=== PATIENT | male | born 1955 | race Hispanic/Latino ===

== ENCOUNTER 2018-11-24 12:01 | Emergency (ER) | payer MEDICARE ==
[~2018-11-24] VITALS: Ht 177.8 cm; Wt 113.9 kg
[~2018-11-24 12:01] MED LIST: CELEBREX100 MG PO; ESIDRIX25 MG PO; FLOMAX0.4 MG PO; GLIPIZIDE ER10 MG PO; LYRICA75 MG PO; METFORMIN HCL500 M2 PO; PLAVIX75 MG PO; TIZANIDINE HCL2 MG; ZESTRIL10 MG PO
--- OUTSIDE RECORDS SUMMARY | 2018-11-24 12:04 | XMS REPORT | Clinical Summary ---
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 1 USE TO CHECK BLOOD SUGARS Active blood glucose Use as 1 Kit 0 meterIndications: Type II directed. 3 or unspecified type diabetes mellitus without mention of complication, uncontrolled Active LANCETSIndications: Type Every Other 1 Box 3 II or unspecified type day 3 diabetes mellitus without mention of complication, uncontrolled Active XALATAN 0.005 % Instill 1 7.5 mL 1 ophthalmic Drop in each 4 solutionIndications: POAG eye at (primary open-angle bedtime glaucoma) nightly. Active blood glucose test Check every 100 Each 3 stripsIndications: Type other day. 5 II or unspecified type diabetes mellitus without mention of complication, uncontrolled Active testosterone (ANDRODERM) Apply 1 Patch 30 Patch 5 2 mg/24 hour to skin as 5 patchIndications: directed Hypogonadism in male every 24 hours. Active ASPIRIN EC 81 mg delayed Take 1 tablet 90 tablet 1 release by mouth 7 tabletIndications: resume daily. on 08/30/2018 Active atorvastatin (LIPITOR) 20 Take 1 tablet 90 tablet 0 mg tabletIndications: by mouth at 7 Hyperlipidemia, bedtime unspecified nightly. hyperlipidemia type Active blood glucose (PRECISION 2 times 50 Each 6 XTRA TEST STRIPS) test weekly. 7 stripsIndications: Diabetes mellitus due to underlying condition with stage 1 chronic kidney disease, without long-term current use of insulin Active atorvastatin (LIPITOR) 20 TAKE 1 TABLET 90 tablet 0 mg tabletIndications: BY MOUTH AT 7 Hyperlipidemia, BEDTIME unspecified NIGHTLY hyperlipidemia type Active latanoprost (XALATAN) Instill 1 7.5 mL 4 0.005 % ophthalmic Drop in each 7 solutionIndications: eye at Glaucoma suspect, bedtime bilateral nightly. Active HYDROcodone-acetaminophen 0 (NORCO) 10-325 mg tablet 8 Active celecoxib (CELEBREX) 200 0 mg capsule 8 Active ETODOLAC CR 600 mg tablet 0 7 Active polyethylene glycol Add lukewarm 4000 mL 0 (GOLYTELY) 236-22.74-6.74 drinking 8 -5.86 gram oral water to the solutionIndications: fill nicolle (4 Polyposis coli, familial liters) and shake. Drink as directed by your doctor.. Active polyethylene glycol Add lukewarm 4000 mL 0 (GOLYTELY) 236-22.74-6.74 drinking 8 -5.86 gram oral water to the solutionIndications: fill nicolle (4 Polyposis coli, familial liters) and shake. Drink as directed by your doctor.. Active finasteride (PROSCAR) 5 TAKE ONE 90 tablet 4 mg tabletIndications: TABLET BY 8 Benign non-nodular MOUTH ONCE prostatic hyperplasia DAILY with lower urinary tract symptoms Active hydroCHLOROthiazide Take 1 tablet 90 tablet 1 (HYDRODIURIL) 25 mg by mouth 8 tabletIndications: daily. Essential hypertension Active clopidogrel (PLAVIX) 75 Take 1 tablet 90 tablet 1 mg tabletIndications: by mouth 8 resume on 08/30/2018 daily. Active doxazosin (CARDURA) 1 mg TAKE ONE 90 tablet 1 tabletIndications: TABLET BY 8 Essential hypertension MOUTH AT BEDTIME NIGHTLY Active lisinopril (PRINIVIL, TAKE 1 TABLET 90 tablet 1 ZESTRIL) 40 mg BY MOUTH ONCE 8 tabletIndications: DAILY Essential hypertension Active pregabalin (LYRICA) 150 Take 1 270 capsule 1 mg capsuleIndications: capsule by 9 Numbness and tingling of mouth 3 times both legs, Carpal tunnel daily. syndrome of left wrist Active Miscellaneous Medical by 1 Each 0 Supply MiscIndications: Misc.(Non-Santos 9 Essential hypertension g; Combo Route) route Blood pressure kit. Active KLOR-CON M10 10 mEq TAKE TWO 180 tablet 1 extended release TABLETS BY 9 tabletIndications: MOUTH ONCE Hypokalemia DAILY Active metFORMIN (GLUCOPHAGE) TAKE 1 TABLET 180 tablet 1 1,000 mg BY MOUTH 9 tabletIndications: TWICE DAILY Diabetes mellitus type 2 WITH MORNING without retinopathy AND EVENING MEALS Active glipiZIDE (GLUCOTROL) 10 TAKE 1 TABLET 180 tablet 0 mg tabletIndications: BY MOUTH 9 Type 2 diabetes mellitus TWICE DAILY without complication, BEFORE A MEAL without long-term current use of insulin Active polyethylene glycol Add lukewarm 4000 mL 0 (GOLYTELY) 236-22.74-6.74 drinking 9 -5.86 gram oral water to the solutionIndications: fill nicolle (4 Polyposis coli, familial liters) and shake. Drink as directed by your doctor.. Active sildenafil citrate Take 1 tablet 30 tablet 0 (VIAGRA) 100 mg by mouth as 9 tabletIndications: needed for Erectile dysfunction, Erectile unspecified erectile Dysfunction. dysfunction type Active polyethylene glycol Add lukewarm 4000 mL 0 (GOLYTELY) 236-22.74-6.74 drinking 9 -5.86 gram oral water to the solutionIndications: fill nicolle (4 Polyposis coli, familial liters) and shake. Drink as directed by your doctor.. Active linagliptin (TRADJENTA) 5 Take 1 tablet 90 tablet 1 mg tabletIndications: by mouth 9 Uncontrolled type 2 daily. diabetes mellitus with hyperglycemia Active clotrimazole (LOTRIMIN) 1 Apply to 30 g 0 % topical affected area 9 creamIndications: 2 times Onychomycosis daily. Active hydrocortisone 1 % Apply to 30 g 0 ointmentIndications: Fire affected area 9 ant bite, undetermined 2 times intent, initial encounter daily. Active amLODIPine (NORVASC) 10 TAKE 1 TABLET 90 tablet 0 mg tabletIndications: BY MOUTH ONCE 9 Essential hypertension DAILY 11/24/2018 Active clindamycin (CLEOCIN HCL) Take 1 30 capsule 0 300 mg capsule by 9 capsuleIndications: Fire mouth 3 times ant bite, undetermined daily for 10 intent, subsequent days. encounter Active lisinopril (PRINIVIL, TAKE 1 TABLET 90 tablet 1 ZESTRIL) 40 mg BY MOUTH ONCE 9 tabletIndications: DAILY Essential hypertension 05/29/2018 Discontinued amLODIPine (NORVASC) 10 TAKE ONE 90 tablet 0 mg tabletIndications: TABLET BY 7 Essential hypertension MOUTH ONCE DAILY 09/22/2018 Discontinued clotrimazole (LOTRIMIN) 1 Apply to 30 g 0 % topical affected area 7 creamIndications: 2 times Candidal balanitis daily. 12/13/2017 Discontinued sildenafil (REVATIO) 20 Take 1 tablet 30 tablet 1 mg tabletIndications: by mouth as 7 Erectile dysfunction, needed for unspecified erectile Other dysfunction type (erecticle diysfunction) Takes 1 hour prior to sexual intercouse. 01/05/2018 Discontinued acarbose (PRECOSE) 100 mg TAKE ONE 270 tablet 0 tabletIndications: TABLET BY 7 Medication refill MOUTH THREE TIMES DAILY WITH MEALS. 01/04/2018 Discontinued doxazosin (CARDURA) 1 mg TAKE ONE 90 tablet 1 tabletIndications: TABLET BY 7 Essential hypertension MOUTH AT BEDTIME NIGHTLY 12/13/2017 Discontinued pregabalin (LYRICA) 75 mg Take 3 360 capsule 1 capsuleIndications: capsules by 7 Numbness and tingling of mouth 2 times both legs daily. 12/13/2017 Discontinued lisinopril (PRINIVIL, TAKE ONE 90 tablet 0 ZESTRIL) 40 mg TABLET BY 7 tabletIndications: MOUTH ONCE Essential hypertension DAILY 06/16/2018 Discontinued KLOR-CON M10 10 mEq TAKE TWO 180 tablet 1 extended release TABLETS BY 7 tabletIndications: MOUTH ONCE Hypokalemia DAILY 12/13/2017 Discontinued lisinopril (PRINIVIL, TAKE ONE 90 tablet 0 ZESTRIL) 40 mg TABLET BY 7 tabletIndications: MOUTH ONCE Essential hypertension DAILY 05/29/2018 Discontinued amLODIPine (NORVASC) 10 TAKE ONE 90 tablet 0 mg tabletIndications: TABLET BY 8 Essential hypertension MOUTH ONCE DAILY 12/13/2017 Discontinued clopidogrel (PLAVIX) 75 TAKE ONE 90 tablet 1 mg tabletIndications: TABLET BY 8 Cerebrovascular accident MOUTH ONCE (CVA), unspecified DAILY mechanism, History of stroke 04/30/2018 Discontinued glipiZIDE (GLUCOTROL) 10 TAKE ONE 180 tablet 0 mg tabletIndications: TABLET BY 8 Type 2 diabetes mellitus MOUTH TWICE without complication, DAILY BEFORE without long-term current A MEAL use of insulin 07/02/2018 Discontinued metFORMIN (GLUCOPHAGE) TAKE ONE 180 tablet 1 1,000 mg TABLET BY 8 tabletIndications: MOUTH TWICE Diabetes mellitus type 2 DAILY WITH without retinopathy MORNING AND EVENING MEAL 12/13/2017 Discontinued hydroCHLOROthiazide TAKE 1 TABLET 90 tablet 0 (HYDRODIURIL) 25 mg BY MOUTH ONCE 8 tabletIndications: DAILY Essential hypertension 04/10/2018 Discontinued lisinopril (PRINIVIL, Take 1 tablet 90 tablet 1 ZESTRIL) 40 mg by mouth 8 tabletIndications: daily. Essential hypertension 05/29/2018 Discontinued pregabalin (LYRICA) 75 mg Take 3 360 capsule 1 capsuleIndications: capsules by 8 Numbness and tingling of mouth 2 times both legs daily. 12/13/2017 Discontinued sildenafil citrate Take 1 tablet 10 tablet 0 (VIAGRA) 25 mg by mouth as 8 tabletIndications: needed for Erectile dysfunction, Erectile unspecified erectile Dysfunction. dysfunction type 12/13/2017 Discontinued sildenafil citrate Take 1 tablet 30 tablet 0 (VIAGRA) 100 mg by mouth as 8 tabletIndications: needed for Erectile dysfunction, Erectile unspecified erectile Dysfunction. dysfunction type 05/29/2018 Discontinued sildenafil citrate Take 1 tablet 30 tablet 0 (VIAGRA) 100 mg by mouth as 8 tabletIndications: needed for Erectile dysfunction, Erectile unspecified erectile Dysfunction. dysfunction type 03/11/2018 Discontinued acarbose (PRECOSE) 100 mg TAKE ONE 270 tablet 0 tabletIndications: TABLET BY 8 Medication refill MOUTH THREE TIMES DAILY WITH MEALS 09/22/2018 Discontinued acarbose (PRECOSE) 100 mg TAKE 1 TABLET 270 tablet 0 tabletIndications: BY MOUTH 8 Medication refill THREE TIMES DAILY WITH MEALS 08/05/2018 Discontinued glipiZIDE (GLUCOTROL) 10 TAKE 1 TABLET 180 tablet 0 mg tabletIndications: BY MOUTH 9 Type 2 diabetes mellitus TWICE DAILY without complication, BEFORE A MEAL without long-term current use of insulin 05/29/2018 Discontinued amLODIPine (NORVASC) 10 Take 1 tablet 90 tablet 0 mg tabletIndications: by mouth 9 Essential hypertension daily. 08/22/2018 Discontinued sildenafil citrate Take 1 tablet 30 tablet 0 (VIAGRA) 100 mg by mouth as 9 tabletIndications: needed for Erectile dysfunction, Erectile unspecified erectile Dysfunction. dysfunction type 11/17/2018 Discontinued amLODIPine (NORVASC) 10 Take 1 tablet 90 tablet 0 mg tabletIndications: by mouth 9 Essential hypertension daily. 05/29/2018 tropicamide (MYDRIACYL) Instill 1 15 mL 0 0.5 % ophthalmic Drop in each 9 solutionIndications: eye once as Uncontrolled type 2 needed for up diabetes mellitus without to 1 dose complication, without (for poor long-term current use of retina scan insulin image). 08/22/2018 Discontinued sildenafil citrate Take 1 tablet 30 tablet 0 (VIAGRA) 100 mg by mouth as 9 tabletIndications: needed for Erectile dysfunction, Erectile unspecified erectile Dysfunction. dysfunction type 11/04/2018 mupirocin (BACTROBAN) 2 % Apply to 22 g 0 ointmentIndications: Fire affected area 9 ant bite, undetermined 3 times daily intent, initial encounter for 7 days. 11/21/2018 mupirocin (BACTROBAN) 2 % Apply to 22 g 0 ointmentIndications: Fire affected area 9 ant bite, undetermined 3 times daily intent, subsequent for 7 days. encounter Status Hospital, Clinic, or Ordered Dose Route Frequency Start End Date Other Facility Date Administered Medication Ended triamcinolone acetonide 20 mg OTHER ONCE 09/06/19 (KENALOG-40) injection 20 19 9 mgIndications: Trigger middle finger, unspecified laterality Ended triamcinolone acetonide 20 mg OTHER ONCE 09/06/19 (KENALOG-40) injection 20 19 9 mgIndications: Trigger middle finger, unspecified laterality Ended lidocaine 1 % (XYLOCAINE) 0.5 mL IJ ONCE 09/06/19 injection 0.5 19 9 mLIndications: Trigger middle finger, unspecified laterality Ended lidocaine 1 % (XYLOCAINE) 0.5 mL IJ ONCE 09/06/19 injection 0.5 19 9 mLIndications: Trigger middle finger, unspecified laterality Active Problems Problem Noted Date Inadequately controlled diabetes mellitus 11/14/2016 History of stroke 10/18/2016 Tubulovillous adenoma repeat colonoscopy in 06/201709/19/2016 Overview: s/p Cscope 08/2017: With hx of Barbour. Recommend repeating colonoscopy in 1yr and forgo annual FIT in the interim. 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 Periodontitis Chronic 02/05/2014 Varicose veins of legs 01/29/2014 Myopia with astigmatism and presbyopia 01/29/2014 NS (nuclear sclerosis) 01/29/2014 Diabetes mellitus type 2 without retinopathy 01/29/2014 POAG (primary open-angle glaucoma) 11/05/2013 Dental decay 04/20/2013 Decay, teeth 10/16/2012 Diabetes mellitus 04/19/2011 Hyperlipidemia 04/19/2011 Hypertension 04/19/2011 Candidiasis 01/28/2009 Erectile dysfunction 01/13/2009 Mass of neck 09/20/2006 Neck pain, posterior 09/20/2006 Microalbuminuria 07/30/2006 Diabetes mellitus type II, uncontrolled 04/05/2006 HTN (hypertension), benign 01/25/2006 High cholesterol Polyposis coli, familial Chronic low back pain Peripheral polyneuropathy Neck mass Overview: Rt side posterior chain ;biopsy in 2003 c/w lipoma Encounters Care Team Description Date Type Specialty Lalit Castillo MD Essential hypertension; at goal 11/19/2018 Refill [facility] Beverly Noel PA Fire ant bite, undetermined intent, subsequent encounter (Primary Dx) 11/14/2018 Office Visit [facility] Lalit Castilol MD Essential hypertension: not at goal, 11/13/2018 Refill [facility] Lalit Castillo MD Bilateral carpal tunnel syndrome (Primary Dx); Fire ant bite, undetermined intent, initial encounter; Essential hypertension: not at goal, ; Uncontrolled type 2 diabetes mellitus without complication, without long-term current use of insulin 10/28/2018 Office Visit Family Practice 10/28/2018 Travel Lalit Castillo MD Consult 10/20/2018 Telephone [facility] Lalit Castillo MD Lumbar radiculopathy (Primary Dx) 10/14/2018 Orders Only [facility] Suzan Astudillo, RN Information Only 10/14/2018 Telephone [facility] Gerda Ovalles, Physician Afsaneh Chacko MD Controlled diabetes mellitus type 2 with complications, unspecified 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 (Primary Dx); History of stroke; Bilateral carpal tunnel syndrome; Numbness and tingling in both hands 10/13/2018 Procedure Visit Physical Medicine and Rehab 10/13/2018 Travel Martina Escamilla, RN Consult (outside referral) 10/09/2018 Telephone [facility] Lalit Castillo MD Onychomycosis (Primary Dx); Uncontrolled type 2 diabetes mellitus with hyperglycemia 09/22/2018 Office Visit [facility] Elizabeth Oconnell, OD Primary open angle glaucoma (POAG) of both eyes, mild stage (Primary Dx) 09/22/2018 Office Visit Ophthalmology Lalit Castillo MD Onychomycosis; Uncontrolled type 2 diabetes mellitus with hyperglycemia 09/22/2018 Orders Only [facility] 09/22/2018 Travel Negin Armijo MD Trigger middle finger, unspecified laterality (Primary Dx); Bilateral hand numbness 09/05/2018 Office Visit Family Practice Negin Armijo MD Trigger middle finger, unspecified laterality; Bilateral hand numbness 09/05/2018 Orders Only Family Practice Donna Rice 09/04/2018 Nurse Only Ophthalmology Coco Velázquez CRNA 08/26/2018 Anesthesia Gastroenterology Event Lalit Castillo MD Lee, Amy I, MD Pappas, Stephen C, MD Polyposis coli, familial (Primary Dx) 08/26/2018 Hospital Encounter 08/26/2018 Travel Lalit Castillo MD Erectile dysfunction, unspecified erectile dysfunction type 08/22/2018 Refill Family Practice Lalit Castillo MD Anemia, unspecified type; Other skilled nursing (current) drug therapy 08/20/2018 Lab Appointment Lab Suzan Astudillo RN Erectile dysfunction, unspecified erectile dysfunction type 08/20/2018 Refill Family Practice 08/20/2018 Travel Lindy Constantino Appointment Related Questions (To confirm that patient received colonoscopy appointment, instruction sheet and Golytely prescription.) 08/19/2018 Telephone Gastroenterology Heriberto Coronel, Fellow(MD) Polyposis coli, familial (Primary Dx) 08/18/2018 Orders Only Gastroenterology Proc, Bt Gi Jaja Haq MD 08/15/2018 Hospital Encounter Elizabeth Oconnell, OD Glaucoma suspect, bilateral (Primary Dx); Mild nonproliferative diabetic retinopathy of both eyes without macular edema associated with type 2 diabetes mellitus; Posterior vitreous detachment of right eye; Combined forms of age-related cataract of both eyes; Bilateral dry eyes; Refractive error 08/12/2018 Office Visit Ophthalmology 08/12/2018 Travel Lalit Castillo MD Type 2 diabetes mellitus without complication, without long-term current use of insulin 08/05/2018 Refill Clinical Pharmacy Sarah Alvarado Appointment Related Questions 07/18/2018 Telephone Family Practice Lalit Castillo MD Diabetes mellitus type 2 without retinopathy 07/02/2018 Refill Family Practice Elizabeth Oconnell, OD Glaucoma suspect, bilateral (Primary Dx) 06/24/2018 Office Visit Ophthalmology 06/24/2018 Travel Lalit Castillo MD Results 06/20/2018 Telephone Family Practice Lalit Castillo MD Essential hypertension: not at goal, ; Uncontrolled type 2 diabetes mellitus without complication, without long-term current use of insulin 06/19/2018 Lab Appointment Lab Martina Escamilla RN Consult 06/19/2018 Telephone [facility] Lalit Castillo MD Hypokalemia 06/16/2018 Refill [facility] Lalit Castillo MD Glaucoma suspect, unspecified laterality 06/03/2018 Orders Only [facility] Lalit Castillo MD Results 06/03/2018 Telephone [facility] Lalit Castillo MD Uncontrolled type 2 diabetes mellitus without complication, without long-term current use of insulin 05/30/2018 Ancillary Ophthalmology Procedure Lalit Castillo MD Numbness and tingling of both legs (Primary Dx); Essential hypertension: not at goal, ; Carpal tunnel syndrome of left wrist: declines surgery; Uncontrolled type 2 diabetes mellitus without complication, without long-term current use of insulin; Erectile dysfunction, unspecified erectile dysfunction type; Chronic low back pain, unspecified back pain laterality, with sciatica presence unspecified 05/29/2018 Office Visit [facility] 05/29/2018 Travel Lalit Castillo MD Type 2 diabetes mellitus without complication, without long-term current use of insulin 04/30/2018 Refill Clinical Pharmacy Case Malhotra, Fellow(MD) Polyposis coli, familial 04/27/2018 Orders Only Gastroenterology Lalit Castillo MD Essential hypertension; at goal 04/10/2018 Refill [facility] Lalit Castillo MD Medication refill 03/11/2018 Refill Clinical Pharmacy Lalit Castillo MD Medication refill 01/05/2018 Refill Clinical Pharmacy Lalit Castillo MD Essential hypertension: not at goal 01/04/2018 Refill [facility] Donna Momin RN Other (returning pharmacy call) 01/03/2018 Telephone Nora Blanchard DO Candidal balanitis 12/31/2017 Refill [facility] Lalit Castillo MD Essential hypertension; at goal (Primary Dx); Numbness and tingling of both legs; Cerebrovascular accident (CVA), unspecified mechanism; History of stroke; Need for Tdap vaccination; Erectile dysfunction, unspecified erectile dysfunction type; Skin lesion; Inadequately controlled diabetes mellitus 12/13/2017 Office Visit Family Practice Lalit Castillo MD Skin lesion 12/13/2017 Orders Only Family Practice after 11/23/2017 Immunizations Name Administration Dates Next Due Clonidine 0.1mg Tab 04/19/2011 Influenza <Unspecified> 01/21/2016 Influenza Vaccine 04/19/2011, 02/10/2010, 02/18/2008, 01/25/2006 01/25/2007 Influenza Vaccine, 01/30/2017 Seasonal, Injectable Influenza, Injectable, 01/24/2018 Quadrivalent, Preservative Free PPV 23 Pneumococcal 04/19/2011 Polysaccaride Pneumococcal 13-valent 11/14/2018 (Deferred: Other) conj 0.5 mL injection Td Tetanus, diphtheria 12/11/2006 12/11/2016 Toxoids Vaccine Tdap (Tetanus Toxoid, 12/13/2017 Reduced Diphtheria Toxoid And Acellular Pertussis, Absorbed) Tropicamide 0.5% Eye-Bessy 06/09/2014 15ml Varicella Vaccine Adult 05/29/2017 in Clinic Family History Medical History Relation Name Comments Cancer Brother Colon cancer Diabetes Father Heart Father Stroke Father Cataracts Mother Diabetes Mother Relation Name Status Comments Brother Alive Brother Alive Brother Alive Brother Alive Brother Alive Brother Father Maternal Grandfather Maternal Grandmother Mother Paternal Grandfather Paternal Grandmother Sister Alive Sister Alive Sister Alive Sister Alive Sister Alive Sister Alive Social History Date Tobacco Use Types Packs/Day Years Used Quit: 03/22/2003 Former Smoker Smokeless Tobacco: Never Used Tobacco Cessation: Counseling Given: No Drinks/Week oz/Week Comments Alcohol Use 1.0 Occasion Yes Food Insecurity Answer Date Recorded Within the past 12 months, you worried that your Never true 09/27/2017 food would run out before you got money to buy more. Within the past 12 months, the food you bought Never true 09/27/2017 just didn't last and you didn't have money to get more. Sex Assigned at Date Recorded Not on file Industry Job Start Date Occupation Not on file Not on file Not on file Travel End Travel History Travel Start No recent travel history available. Last Filed Vital Signs Reading Time Taken Comments Vital Sign 111/66 11/14/2018 8:47 AM CDT Blood Pressure 66 11/14/2018 8:47 AM CDT Pulse 36.8 C (98.2 F) 11/14/2018 8:47 AM CDT Temperature 18 11/14/2018 8:47 AM CDT Respiratory Rate 98% 11/14/2018 8:47 AM CDT Oxygen Saturation - - Inhaled Oxygen Concentration 111.1 kg (245 lb) 11/14/2018 8:47 AM CDT Weight 172.7 cm (5' 8") 11/14/2018 8:47 AM CDT Height 37.25 11/14/2018 8:47 AM CDT Body Mass Index Plan of Treatment Care Team Description Date Type Specialty 12/19/2018 Lab Appointment Lab 12/26/2018 Office Visit Ophthalmology Health Maintenance Due Date Last Done Comments DM HGBA1C (Yearly) 06/19/2019 06/19/2018, 06/25/2017, 12/05/2016, Additional history exists Colonoscopy 1yr 08/29/2019 08/28/2018, 08/21/2017 (Previously completed - External), 07/18/2016 (Previously completed - External), Additional history exists DM Retinal Exam (Yearly) 09/23/2019 09/22/2018, 08/12/2018, 06/24/2018, Additional history exists DM Foot Exam (Yearly) 10/29/2019 10/28/2018, 10/28/2018, 06/17/2017, Additional history exists IMM Pneumococcal Age 63 Completed 04/19/2011 and Up Procedures Comments Procedure Name Priority Date/Time Associated Diagnosis DIABETIC FOOT EXAM Routine 10/28/2018 Uncontrolled type 2 11:40 AM CDT diabetes mellitus without complication, without long-term current use of insulin EMG CONSULT OUTPATIENT Routine 10/13/2018 Bilateral hand numbness 9:00 AM CDT POC GLUCOSE - IN LAB Routine 08/26/2018 (STAT) 8:59 AM CDT MERGED WITH [facility] Routine 08/26/2018 8:20 AM CDT POC GLUCOSE - IN LAB Routine 08/26/2018 (STAT) 7:54 AM CDT EGD Routine 08/26/2018 Polyposis coli, familial 2:00 AM CDT COLONOSCOPY Routine 08/26/2018 Polyposis coli, familial 2:00 AM CDT FOLIC ACID Routine 08/20/2018 Other skilled nursing (current) 11:59 AM CDT drug therapy Anemia, unspecified type VITAMIN B12 Routine 08/20/2018 Other termite treater (current) 11:59 AM CDT drug therapy Anemia, unspecified type IRON PROFILE Routine 08/20/2018 Anemia, unspecified type 11:59 AM CDT FERRITIN Routine 08/20/2018 Anemia, unspecified type 11:59 AM CDT MICROALBUMIN / CREATININE Routine 06/19/2018 Essential hypertension: URINE RATIO 10:24 AM 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, Uncontrolled type 2 diabetes mellitus without complication, without long-term current use of insulin LIVER PROFILE Routine 06/19/2018 Essential hypertension: 10:23 AM 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, Uncontrolled type 2 diabetes mellitus without complication, without long-term current use of insulin BASIC METABOLIC PANEL Routine 06/19/2018 Essential hypertension: 10:23 AM 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, Uncontrolled type 2 diabetes mellitus without complication, without long-term current use of insulin LIPID PROFILE Routine 06/19/2018 Essential hypertension: 10:23 AM 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, Uncontrolled type 2 diabetes mellitus without complication, without long-term current use of insulin HEMOGLOBIN A1C Routine 06/19/2018 Essential hypertension: 10:23 AM 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, Uncontrolled type 2 diabetes mellitus without complication, without long-term current use of insulin CBC/DIFF Routine 06/19/2018 Essential hypertension: 10:23 AM 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, Uncontrolled type 2 diabetes mellitus without complication, without long-term current use of insulin OPHTHALMOLOGY RETINAL Routine 05/30/2018 Uncontrolled type 2 SCAN 4:32 PM WIREWORKER SUPERVISOR diabetes mellitus without complication, without long-term current use of insulin after 11/23/2017 Results * DIABETIC FOOT EXAM (10/28/2018 11:40 AM CDT) Narrative Performed At Lalit Castillo MD 10/28/20183:38 PM Diabetic Foot Exam was performed at 10/28/2018 11:50 AM.Right foot sensation is normal, right foot pulses are normal, right foot appearance is normal.Left foot sensation is normal,left foot pulses are normal, left foot appearance is normal. * EMG CONSULT OUTPATIENT (10/13/2018 9:00 AM CDT) Narrative Performed At Afsaneh Chacko MD 10/19/20181:20 PM [facility], DEPT PMR [address] [place] [address] ELECTROMYOGRAPHY REPORT NAME : YUN OSMAN GENDER: Male DATE OF : 1955 ORDERING PHYSICIAN: NEGIN ARMIJO DATE :10/13/2018 09:23 NOTE: RESULTS NOT VALID WITHOUT ATTENDING PHYSICIAN ELECTRONIC SIGNATURE REASON FOR REFERRAL: BILATERAL HAND NUMBNESS CC: FINGER AND HAND NUMBNESS B/L HPI: 62YO RIGHT HANDED MAN WITH ABOVE SYMPTOMS FOR ABOUT 2 YEARS. HAD EMG/NCS DONE IN 2017 WHICH SHOWED MODERATE MEDIAN MONONEUROPATHY IN LEFT HAND, SAYS HE DID NOT HAVE ANY PROCEDURE OR SURGERY DONE AT THE TIME. NOW IS HAVING PAIN IN B/L HANDS, FEELS LIKE NEEDLES POKING HIS HAND. INVOLVING ALL 4 FINGERS (NOT THUMB) OF BOTH HANDS. IS DROPPING OBJECTS, MORE WITH LEFT HAND. NO RADIATING SYMPTOMS FROM NECK. THE EMG/NCS PROCEDURE WAS EXPLAINED TO THE PATIENT.QUESTIONS WERE ANSWERED REGARDING THE PROCEDURE.THE PATIENT WAS AGREEABLE TO HAVING THE EMG/NCS PROCEDURE PERFORMED PRIOR TO STARTING. REVIEW OF SYSTEMS: CONSTITUTIONAL SYMPTOMS:NEG, DENIES RECENT ILLNESS GASTROINTESTINAL: NEG GENITOURINARY: NEG MUSCULOSKELETAL:PAIN AND WEAKNESS ABOVE NEUROLOGICAL:NUMBNESS ABOVE PSYCHIATRIC:NEG DEPRESSION ENDOCRINE: NEG THYROID, POSITIVE DMT2 (ON METFORMIN) SOCIAL HISTORY:NEG TOBACCO, POSITIVE ETOH (OCCASIONAL BINGE DRINKING) OCCUPATION: NOT WORKING SINCE 1998 PHYSICAL EXAM CONSTITUTIONAL: GEN APPREARANCE:NAD VITALS: T97.6, P59, R 16 NECK:TRACHEA MIDLINE MUSCULOSKELETAL: DIGITS AND NAILS:NEG PITTING IN HANDS OR FEET INSPECTION:MILD THENAR ATROPHY PALPATION: NEG TENDERNESS ROM: FULL ROM STRENGTH: 4/5 IN LEFT FINGER FLEXORS AND ABDUCTORS, 5/5 IN REST TONE:NO INCREASED TONE GAIT: NO ASSISTIVE DEVICES SPECIAL TESTS: NEG TINEL, NEG PHALEN, NEG SPURLING SKIN: INSPECTION: NO RASHES PALPATION: NL TURGOR NEUROLOGIC: SENSATION: R EQUAL TO L. PROXIMAL EQUAL TO DISTAL. DTR : 2+ OF 4 B/L BICEPS, BR, NEG LUA PSYCHIATRIC: ORIENTATION: TO NAME AND MEMORY: GOOD RECALL EVENTS MOOD / AFFECT: NORMAL AND CONGRUENT RESIDENT PHYSICIAN: MILE RICE EDX Sensory Nerve / Sites Rec. Site Distance Onset Mc Onset Lat Peak Lat Amp Temp. mm m/s ms ms V C R Median - Digit III (Antidromic) Wrist Dig III 140 NR NR NR NR 32.5 R Ulnar - Digit V (Antidromic) Wrist Dig V 140 51.7 2.7 3.5 12.3 32.5 L Median - Digit III (Antidromic) Wrist Dig III 140 NR NR NR NR 32.5 L Ulnar - Digit V (Antidromic) Wrist Dig V 140 51.7 2.7 3.6 12.6 32.2 Motor Nerve / Sites Rec. Site Distance Velocity Latency Amplitude Temp. mm m/s ms mV C L Median - APB Wrist APB 8013.3 2.1 31.5 Elbow APB 240 40.4 19.3 2.0 31.5 L Ulnar - ADM Wrist ADM 803.2 4.8 31.5 B.Elbow ADM 270 54.6 8.2 5.3 31.7 R Median - APB Wrist APB 806.4 4.9 31.7 Elbow APB 240 44.3 11.8 4.4 31.7 R Ulnar - ADM Wrist ADM 803.2 5.3 31.7 B.Elbow ADM 240 53.6 7.7 5.0 31.7 EMG EMG Summary Table Spontaneous MUAP Comment Muscle IA Fib PSW Fasc Other Effort Recruit Dur Amp Polys Comment R. Abductor pollicis brevis INCR 1+ 1+ None . Normal Normal Normal Normal None . R. Abductor digiti minimi (manus) Normal 0 0 None . Normal Normal Normal Normal None . L. Abductor pollicis brevis Normal 0 0 None . Normal Normal Normal Normal None . NERVE SUMMARY: SENSORY: RIGHT MEDIAN: NO RESPONSE RIGHT ULNAR: NORMAL PEAK LATENCY, NORMAL AMPLITUDE LEFT MEDIAN: NO RESPONSE LEFT ULNAR: NORMAL PEAK LATENCY, NORMAL AMPLITUDE MOTOR: RIGHT MEDIAN: DELAYED ONSET LATENCY, NORMAL AMPLITUDE, DECREASED CONDUCTION VELOCITY RIGHT ULNAR: NORMAL ONSET LATENCY, NORMAL AMPLITUDE, NORMAL CONDUCTION VELOCITY LEFT MEDIAN: DELAYED ONSET LATENCY, DECREASED AMPLITUDE, DECREASED CONDUCTION VELOCITY LEFT ULNAR: NORMAL ONSET LATENCY, NORMAL AMPLITUDE, NORMAL CONDUCTION VELOCITY MUSCLE SUMMARY: - ABNORMAL SPONTANEOUS ACTIVITY NOTED IN RIGHT ABDUCTOR POLLICIS BREVIS - REST OF TESTED MUSCLES WITH NORMAL INSERTIONAL ACTIVITY, NO ABNORMAL SPONTANEOUS ACTIVITY, NORMAL RECRUITMENT, AND NORMAL MUAP POTENTIALS. ATTENDING PHYSICIAN CONCLUSION: I WAS PRESENT FOR THE MONTEZ PORTION OF THE NCS/EMG PROCEDURE WITH DR. TREADWELL ON 10/13/18. I SAW AND EVALUATED THE PATIENT. I REVIEWED THE RESIDENT S NOTE AND AGREE. LABS, IMAGING, AND PERTINENT MEDICAL RECORDS REVIEWED AND SUMMARIZED FROM [facility] ABOVE. 1. ABNORMAL STUDY. 2. ELECTRODIAGNOSTIC EVIDENCE OF SEVERE RIGHT, MODERATE LEFT, BILATERAL MEDIAN MONONEUROPATHY AT THE WRISTS: SENSORY AND MOTOR, DEMYELINATING AND AXONAL. 3. FINDINGS CLINICALLY CONSISTENT WITH BILATERAL CARPAL TUNNEL SYNDROME. 4. NO ELECTRODIAGNOSTIC EVIDENCE OF BILATERAL UPPER LIMB PERIPHERAL POLYNEUROPATHY IN AREAS TESTED OTHERWISE (HX OF DM). 5. NO RADICULAR SYMPTOMS AT THIS TIME. PLEASE RECONSULT FOR ADDITIONAL TESTING IF NEEDED. PLAN: FOLLOW UP WITH THE REFERRING PHYSICIAN. FACULTY: [facility] ELECTRODIAGNOSTIC LABORATORY NORMAL REFERENCE VALUES FOR COMMON NERVE CONDUCTION STUDIES References used for this table from: 1. Prernaer and Clara, Manual of Nerve Conduction Studies, 2nd edition, 2006, [employer], [place], [place] (for a complete listing please refer to this manual) and2. * Deepthi Mata and Dulce, Electrodiagnostic Medicine, 2nd edition, 2002, [place], [place], [place]. Skin temperature should be > 32 degrees Celsius in the upper limb and > 30 degrees Celsius in the lower limb. Final determination of normality will be made by Attending Physician taking in consideration conditions of testing. Motor Nerve Studies NerveCV(M/s)Onset latency (ms) Amplitude (mV) F-wave (ms) Axillary to Deltoid --<5.4 ms >4.6 mV-- Median to APB (8cm) >49 M/sec <4.5 ms >5 mV*<31.6 ms Musculocut.to Biceps --<5.6 ms > 4.0mV-- Radial to EDC (8cm) >54 M/sec <3.5 ms >4.3 mV-- Suprascapular (Supraspinatus) --<4.3 ms >1.6 mV-- (IS)--<4.8 ms >1.5 mV-- Ulnar to ADM (8cm) (W to BE) > 52 M/sec 2.3-4.4 ms>6.1 +/- 1.9 mV* <31.5 ms (BE to AE) > 43 M/sec Ulnar to FDI --<4.6 ms >5.1 mV-- Femoral to quads (above ligament) --<8.5 ms 0.2 11mV -- (below ligament) --<7.4 ms 0.2 11mV -- Peroneal to EDB (8cm) (ankle to fib head) >38 M/sec <6.5 ms >1.3 mV <61.2 ms (>2.6 mV if under 40 yo) (across knee) >42 M/sec Peroneal to TA >43 M/sec <4.9 ms >1.7 mV-- Tibial to AH (8cm) >39 M/sec <6.1 ms >4.4 mV<61.4 ms Sensory Nerve Studies Nerve CV (M/s) Peak latency (ms) Amplitude (V)-onset to peak Lat. antebrach.cut. --<2.5 ms >5 V Med. antebrach cut. --<2.6 ms >4 V Median to digit 2,3 (14cm) --<3.7 ms*>10 V (>15-19 V if under 50 yo) Radial to base thumb (10cm)--<2.8 ms >7 V Ulnar to digit 5 (14cm) --<3.7 ms*>6 V (>11-14 V if under 50 yo) Dorsal ulnar cut. (10cm) --<2.9 ms >5 V Comparison studies: Median/Radial to thumb --<3.1/3.0 ms>10/3 V Median/Ulnar transcarpal --<2.4/2.4 ms>10/4 V Median/Ulnar 4th digit--<4.1/3.9 ms>5/5 V Lat. fem. cut. (Spevak) >51 M/sec <6.0 ms 2.0 +/- 1.0 V Med. fem. cut.--<3.5 ms 3.4-7.9 V Superficial peroneal (14cm)--<4.2 ms 7.7 +/- 3.9 V Sural (14 cm)--<4.5 ms 10-50 V Plantar (14 cm) (Medial)--<3.7 ms 10-30 V (Lateral)--<3.7 ms 8-20 V Other Nerve Conductions Onset latency (ms) Amplitude (mV) H-reflex to FCR<18.9 ms> 0.8 mV H-reflex to gastrocnemius<35 ms -- Blink reflex(R1) <13 ms (R2 ipsi/contra)<40/41 ms Cranial VII (preauricular)2.8-4.1 ms (postauricular)3.2- 4/4 ms Cranial XI1.7-3.0 ms> 3-4 mV * GLUCOSE POC (08/26/2018 8:59 AM CDT) Only the most recent of 2 results within the time period is included. Glucose POC 123 (H) 74 - 106 mg/dL MAIN-STATION 1 Specimen Performing Organization Address City/State/Zipcode Phone Number [facility]EFANIAYS MAIN-STATION 1 * [facility] SURGICAL PATHOLOGY (08/26/2018 8:20 AM CDT) [facility] Surgical (note) [facility] Pathology Name YUN OSMAN Date of 1955 Hospital Number [id number] Location [facility] WITH [facility] 4F Post Anesthesia SURGICAL PATHOLOGY Collected:08/26/2018 08:20 Received: 08/26/2018 15:15 ADDENDUM Addendum Comment This addendum is created to report results of Helicobacter pylori immunostain. Addendum Diagnosis Immunohistochemical stain for H pylori is performed on Block A1, with appropriately reactive control and is NEGATIVE for H pylori organisms. End of Addendum Report or Additional Results 11/03/2018 Tina Cox M.D./[id number] Staff Pathologist PATHOLOGIC DIAGNOSIS A.STOMACH, RANDOM BIOPSIES: - ANTRAL MUCOSA WITH CHRONIC INACTIVE GASTRITIS - IMMUNOSTAIN FOR H. PYLORI PENDING, RESULTS WILL BE REPORTED IN THE ADDENDUM REPORT - OXYNTIC MUCOSA WITH NO PATHOLOGIC ALTERATION B.ASCENDING COLON, POLYPECTOMY: - TUBULAR ADENOMA (X1) - PIECES OF BENIGN COLONIC MUCOSA (X4) C.TRANSVERSE COLON, POLYPECTOMY: - PIECES OF TUBULAR ADENOMA (X3) Tina Cox M.D/[id number] Staff Pathologist Pertinent Clinical Information Random gastric for H. pylori, ascending polyp adenoma as well as transverse Gross Description Specimen Material:A. Random gastric biopsies, B. Ascending colon polyp, C. Transverse colon polyp The case is received in three parts labeled with the patient's name "YUN OSMAN", medical record number and given accession number [id number], and it is accompanied by a requisition form labeled with the same name and accession number. Part A.Received in formalin labeled "RANDOM GASTRIC BIOPSIES" consists of four irregular fragments of chacko-white tissue measuring 0.6 x 0.5 x 0.2 cm in aggregate which are submitted in toto in one cassette. Part B.Received in formalin labeled "ASCENDING COLON POLYP" consists of four irregular fragments of chacko soft tissue measuring 0.8 x 0.6 x 0.1 cm in aggregate which are submitted in toto in one cassette. Part C.Received in formalin labeled "TRANSVERSE COLON POLYP" consists of two irregular fragments of chacko-white tissue measuring 0.5 x 0.4 x 0.2 cm in aggregate which are submitted in toto in one cassette. [id number] Radon Inspector Microscopic Description A.Sections have pieces of antral and oxyntic mucosa.Pieces of antral mucosa have increased chronic inflammation in the lamina propria. No activity, Helicobacter pylori organisms, intestinal metaplasia, dysplasia or malignancy is seen.Immunohistochemical stain for Helicobacter pylori is pending.Addendum report to follow. B.Performed. C.Sections have three pieces of colonic mucosa with adenomatous changes. No high-grade dysplasia is seen. This immunohistochemistry test(s) was developed and its performance characteristics determined by the [facility] and/or affiliated institution.It has not been cleared or approved by the U.S. Food and Drug Administration.The FDA has determined that such clearance or approval is not necessary.This test is used for clinical purposes.It should not be regarded as investigational or for research.This laboratory is certified under the Clinical Laboratory Improvement Amendments of 1988 (CLIA) as qualified to perform high complexity clinical laboratory testing. I have personally reviewed the relevant preparations for the specimen(s), reviewedand agreed with the resident/fellow's interpretation. Electronically Signed Out Tina Cox M.D./[id number] Staff Pathologist Specimen Performing Organization Address City/State/Zipcode Phone Number MISYS * EGD (08/26/2018 2:00 AM CDT) TEXT Patient Name YUN OSMAN [facility] Date of 1955 Record Number [id number] Date/Time of Procedure 08/26/2018, 2:00:00 AM Endoscopist Bryant Lenz MD./Fellow Lopez Galeas INDICATIONS FOR EXAMINATION:Fa kailey history neoplasm of gastrointestinal tract, Malignant. PROCEDURE PERFORMED: EGD - EGDwith biopsy single/multiple INSTRUMENTS: [id number] LIMITATIONS:None TOLERANCE: Good VISUALIZATION:Good MEDICATIONS:MAC Anesthesia ASA CLASSIFICATION:III ANALGESIA:Anesthesia PROCEDURE TECHNIQUE: Prior to the procedure, a History and Physical was performed, and patient medications and allergies were reviewed.The risks and benefits of the procedure and the sedation options and risks were discussed with the patient. Consent was obtained.Pulse, blood oxygen saturation, and blood pressure were monitored throughout the procedure.After adequate sedation, the endoscope was introduced through the mouth and under direct visualization advanced to the Second Part of Duodenum. Careful examination of the esophagus, stomach and duodenum was performed. FINDINGS: The upper and middle esophagus appeared normal. There is LA B esophagitis in the distal esophagus/GEJ. The gastric cardia, fundus, and body were normal. There is erythema and scatterred erosions in the antrum. Random gastric biopsies obtained. The pylorus, duodenal bulb, and descending duodenum through the second portion of the duodenum appeared normal. no gastroduodenal polyps of masses seen SPECIMEN COLLECTED: Yes 1 ENDOSCOPIC DIAGNOSIS: Gastric Erythema and Erosions RECOMMENDATIONS: follow up biopsy results no gastroduodenal polyps of masses seen proceed to colonoscopy COMPLICATIONS: None.None ESTIMATED BLOOD LOSS:None BLOOD PRODUCTS ADMINISTERED:None GRAFT/IMPLANT:None TOTAL PROCEDURE TIME: TOTAL SEDATION TIME: COMMENTS: CPT CODE: [id number] Esophagogastroduodenoscopy, flexible, transoral; with biopsy, single or multiple ICD CODE: Z80.0 Family history of malignant neoplasm of digestive organs I was present during the entire viewing portion of theprocedure.I personally reviewed the images and report prepared by the resident or fellow and agree with the findings.After the procedure was completed, the patient was taken to the recovery in good condition. This Procedure was electronically signed of on : 08/26/2018 11:57:42 AM By Bryant Miles Specimen Performing Organization Address City/State/Zipcode Phone Number SMS * COLONOSCOPY (08/26/2018 2:00 AM CDT) TEXT Patient Name YUN OSMAN [facility] Date of 1955 Record Number [id number] Date/Time of Procedure 08/26/2018, 2:00:00 AM Endoscopist Byrant Lenz MD./Fellow Lopez Galeas INDICATIONS FOR EXAMINATION:Po lyp of colon. PROCEDURE PERFORMED: Colonoscopy - with removal of lesion by snare Colonoscopy - with bleeding control INSTRUMENTS: [id number] LIMITATIONS:None TOLERANCE: Good VISUALIZATION:Good PREP QUALITY: Good BOSTON BOWEL PREPARATION SCALE (BBPS): Right Colon: 2 Transverse Colon: 3 Left Colon: 2 Total Score: 7 SPECIMEN COLLECTED: Yes MEDICATIONS:MAC Anesthesia ASA CLASSIFICATION:III ANALGESIA:Anesthesia PROCEDURE TECHNIQUE: Prior to the procedure, a history and physical exam was performed.Patient medications and allergies were reviewed. Informed consent was obtained from the patient after explaining all of the risks, benefits and alternatives to the procedure, which the patient appeared to understand and so stated. Sedation options and risks were discussed with the patient.Patient identification and proposed procedure were verified by the physician and the nurse in the endoscopy suite. Throughout the procedure the patient's level of sedation, blood pressure, pulse and oxygen saturation were monitored continously. After adequate sedation was achieved, a digital rectal exam was performed and the colonoscope was advanced under direct visualization to the terminal ileum, cecum. The terminal ileum, cecum was identified by visual landmarks. T he scope was subsequently withdrawn slowly while carefully examining the colonic mucosa for abnormalities. In the rectum, the scope was retroflexed to evaluate for internal hemorrhoids and anorectal pathology. The patient was subsequently transferred to the recovery area in satisfactory condition. FINDINGS: Digital rectal exam was normal. There was a 4 mm sessile polyp in the ascending removed with cold snare en toto and clipped to prevent bleeding given current plavix use There was a 6 mm flat polyp in the transverse removed with cold snare en toto and clipped to prevent bleeding given curent plavix use The terminal ileum, cecum, descending, sigmoid colon, and rectum were normal. Retroflexion in the rectum revealed small external hemorrhoids ENDOSCOPIC DIAGNOSIS: Polyp of colon. Hemorrhoids, external. RECOMMENDATIONS: hold plavix and aspirin for 3 days. ok to resume both on 08/30/2018. follow up polyp histology repeat colonoscopy in 1 year follow up in GI clinic COMPLICATIONS: None.None ESTIMATED BLOOD LOSS:None BLOOD PRODUCTS ADMINISTERED:None GRAFT/IMPLANT:None TOTAL PROCEDURE TIME: 00:00:00 TOTAL SEDATION TIME: COMMENTS: CPT CODE: [id number] Colonoscopy, flexible; with removal of tumor(s), polyp(s), or other lesion(s) by snare technique [id number] Colonoscopy, flexible; with control of bleeding, any method ICD CODE: K63.5 Polyp of colon K63.5 Polyp of colon K64.4 Residual hemorrhoidal skin tags I was present during the entire viewing portion of theprocedure.I personally reviewed the images and report prepared by the resident or fellow and agree with the findings.After the procedure was completed, the patient was taken to the recovery in good condition. This Procedure was electronically signed of on : 08/26/2018 11:56:52 AM By Bryant Miles Specimen Performing Organization Address [facility] Phone Number SMS * FOLIC ACID (08/20/2018 11:59 AM CDT) Folic Acid 9.5 5.9 - 24.8 ng/mL BT MAIN-STATION 1 Specimen Blood Performing Organization Address [facility] Phone Number MISYS BT MAIN-STATION 1 * FERRITIN (08/20/2018 11:59 AM CDT) Ferritin 33.70 23.9 - 336.2 ng/mL BT MAIN-STATION 1 Specimen Blood Performing Organization Address [facility] Phone Number MISYS BT MAIN-STATION 1 * VITAMIN B12 (08/20/2018 11:59 AM CDT) Vitamin B12 368 211 - 911 pg/mL BT MAIN-STATION 1 Specimen Blood Performing Organization Address [facility] Phone Number MISYS BT MAIN-STATION 1 * IRON PROFILE (08/20/2018 11:59 AM CDT) Iron 74 50 - 212 ug/dL BT MAIN-STATION 1 TIBC 322 250 - 450 ug/dL BT MAIN-STATION 1 % Iron Sat 23 % BT MAIN-STATION 1 Specimen Blood Performing Organization Address [facility] Phone Number MISYS BT MAIN-STATION 1 * MICROALBUM, URINE (06/19/2018 10:24 AM WIREWORKER SUPERVISOR) Microalbum, 9.4 0.0 - 29.0 mg/dL BT MAIN-STATION Random 1 Creatinine, 90.8 20 - 370 mg/dL BT MAIN-STATION Urine 1 Urine 103.5 (H) 0 - 29 mg/g UCR BT MAIN-STATION Microalbumin Comment: 1 To minimize intra-individual variation, analysis of three random urine samples collected over the course of a week is recommended. Specimen Performing Organization Address [facility] Phone Number MISYS BT MAIN-STATION 1 * HEMOGLOBIN A1C (06/19/2018 10:23 AM WIREWORKER SUPERVISOR) Hemoglobin A1c 7.1 (H) 4.3 - 6.1 % BT DIAGNOSTIC IMMUNOLOGY Est Average 157.1 mg/dL BT DIAGNOSTIC Gluc IMMUNOLOGY Specimen Blood Performing Organization Address [facility] Phone Number MISYS BT DIAGNOSTIC IMMUNOLOGY * LIVER PROFILE (06/19/2018 10:23 AM WIREWORKER SUPERVISOR) Protein, Total, 6.7 6.0 - 8.3 g/dL BT MAIN-STATION Serum 1 Albumin 3.9 (L) 4.2 - 5.5 g/dL BT MAIN-STATION 1 Bilirubin, 0.9 0.2 - 1.2 mg/dL BT MAIN-STATION Total 1 Alkaline 61 34 - 104 U/L BT MAIN-STATION Phosphatase, S 1 AST (SGOT) 21 13 - 39 U/L BT MAIN-STATION 1 ALT 16 7 - 52 U/L BT MAIN-STATION 1 D Bilirubin 0.2 0.0 - 0.2 mg/dL BT MAIN-STATION 1 Specimen Blood Performing Organization Address [facility] Phone Number MISYS MAIN-STATION 1 * LIPID PROFILE (06/19/2018 10:23 AM WIREWORKER SUPERVISOR) Pathologist [facility] Cholesterol 151 mg/dL BT MAIN-STATION Comment: 1 REFERENCE RANGE: Desirable: <200 mg/dL Borderline: 200-240 mg/dL High Risk: >240 mg/dL Triglyceride 58 <150 mg/dL BT MAIN-STATION Comment: 1 REFERENCE RANGE: Normal: <150 mg/dL Borderline High: 150-199 mg/dL High: 200-499 mg/dL Very High: >yl=864 mg/dL HDL 53 mg/dL BT MAIN-STATION Comment: 1 Increased CHD risk: <40 mg/dL Decreased CHD risk: >60 mg/dL LDL 86 mg/dL BT MAIN-STATION Comment: 1 REFERENCE RANGE: Optimal: <100 mg/dL Near Optimal: 100-129 mg/dL Borderline High: 130-159 mg/dL High: 160-189 mg/dL Very High: >uf=386 mg/dL Specimen Blood Performing Organization Address [facility] Phone Number MISYS MAIN-STATION 1 * CBC/DIFF (06/19/2018 10:23 AM WIREWORKER SUPERVISOR) Pathologist [facility] WBC 7.2 4.5 - 12.0 K/uL BT MAIN-STATION 2 RBC 4.40 (L) 4.60 - 6.20 M/uL BT MAIN-STATION 2 Hemoglobin 12.7 (L) 14.0 - 18.0 g/dL BT MAIN-STATION 2 Hematocrit 40.2 40.0 - 54.0 % BT MAIN-STATION 2 MCV 91 82 - 92 fL BT MAIN-STATION 2 MCH 28.9 27.0 - 31.0 pg BT MAIN-STATION 2 MCHC 31.6 (L) 32.0 - 36.0 g/dL BT MAIN-STATION 2 RDW 45.0 (H) 35.1 - 43.9 fL BT MAIN-STATION 2 Platelets 205 150 - 400 K/uL BT MAIN-STATION 2 Mean Platelet 12.3 9.4 - 12.4 fL BT MAIN-STATION Volume 2 Percent NRBC 0.0 BT MAIN-STATION 2 Absolute NRBC 0.00 BT MAIN-STATION 2 Neutrophils 60.0 34.0 - 67.9 % BT MAIN-STATION 2 Lymphs 28.4 21.8 - 50.0 % BT MAIN-STATION 2 Monocytes 8.6 5.3 - 12.0 % BT MAIN-STATION 2 Eos 1.4 0.8 - 5.0 % BT MAIN-STATION 2 Basos 1.3 (H) 0.2 - 1.2 % BT MAIN-STATION 2 Immature 0.3 0.0 - 0.5 BT MAIN-STATION Granulocytes 2 Neutrophils 4.32 1.78 - 5.36 K/uL BT MAIN-STATION (Absolute) 2 Lymphs 2.04 1.32 - 3.57 K/uL BT MAIN-STATION (Absolute) 2 Monocytes(Absol 0.62 0.30 - 0.82 K/uL BT MAIN-STATION robinson) 2 Eos (Absolute) 0.10 0.04 - 0.54 K/uL BT MAIN-STATION 2 Baso (Absolute) 0.09 (H) 0.01 - 0.08 K/uL BT MAIN-STATION 2 Immature Grans 0.02 0.00 - 0.03 K/uL BT MAIN-STATION (Abs) 2 Specimen Blood Performing Organization Address [facility] Phone Number MISYS BT MAIN-STATION 2 * BASIC METABOLIC PANEL (06/19/2018 10:23 AM WIREWORKER SUPERVISOR) [facility] CO2 25 21 - 31 mmol/L BT MAIN-STATION 1 Chloride 103 98 - 107 mmol/L BT MAIN-STATION 1 Potassium 3.5 3.5 - 5.1 mmol/L BT MAIN-STATION 1 Sodium 138 136 - 145 mmol/L BT MAIN-STATION 1 Glucose 82 70 - 110 mg/dL BT MAIN-STATION 1 BUN 29 (H) 7 - 25 mg/dL BT MAIN-STATION 1 Creatinine 1.00 0.7 - 1.3 mg/dL BT MAIN-STATION 1 Anion Gap 10 BT MAIN-STATION 1 Calcium 9.1 8.6 - 10.3 mg/dL BT MAIN-STATION 1 GFR, Estimated >60 mL/min/1.73 m2 BT MAIN-STATION 1 eGFR If Africn >60 mL/min/1.73 m2 BT MAIN-STATION Am 1 Specimen Blood Performing Organization Address [facility] Phone Number MISYS [facility] MAIN-STATION 1 * OPHTHALMOLOGY RETINAL SCAN (05/30/2018 4:32 PM WIREWORKER SUPERVISOR) RETINAL ALERT (A) IRIS SCAN-FINAL RESULT Right Diabetic None IRIS Retinopathy Right Macular None IRIS Edema Right Other Suspected Glaucoma IRIS Suspected Conditions Right Image Gradeable Image IRIS Quality Left Diabetic Mild (A) IRIS Retinopathy Left Macular None IRIS Edema Left Other None IRIS Suspected Conditions Left Image Gradeable Image IRIS Quality Specimen Narrative Performed At Retinal Study Result for YUN OSMAN ARTURO, a 62 y/o, M (: 1955, ) presented to [facility] on 05-30-2018 for a retinal imaging study of the left and right eyes. Based on the findings of the study, the following is recommended for YUN OSMAN Other Suspected Condition Found: Refer to [facility], next available appointment.For Follow-up at [facility]: The patient can be scheduled into any [facility] that has an open booking by calling the appointment center. Interpreting Provider's Comments:No comments provided Right Eye Findings: Negative for Diabetic Retinopathy. Other: Suspected Glaucoma Left Eye Findings: Diabetic Retinopathy: Mild This result was electronically signed by Brody Huff MD, , Taxonomy: [id number] on 05-30-2018 10:32:38 [facility] time. NOTE:Any pathology noted on this diabetic retinal evaluation should be confirmed by an appropriate ophthalmic examination. Performing Organization Address City/State/Zipcode Phone Number IRIS after 11/23/2017 Insurance Type Payer Benefit Subscriber ID Effective Phone Address Plan / Dates Group [employer] MEDICARE COMPLETE AAR xxxxxxxxx 2016-P [phone] [address] [place] [address] [place] [address]
--- OUTSIDE RECORDS SUMMARY | 2018-11-24 12:04 | XMS REPORT ---
Author Author [facility] Address Unknown Phone Unavailable Care Team Providers Care Receiver/Laborer Name Role Phone Vineet COREY Unavailable Unavailable Problems This patient has no known problems. Allergies, Adverse Reactions, Alerts This patient has no known allergies or adverse reactions. Medications This patient has no known medications. Encounters Start Date/Time End Date/Time Encounter Type Admission Type Attending [facility] Care Department Encounter ID 2018-12-26 00:00:00 2018-12-26 00:00:00 Outpatient [facility] [id number] 2018-12-19 00:00:00 2018-12-19 00:00:00 Outpatient [facility] [id number] 2018-11-14 08:47:50 2018-11-14 08:47:50 Outpatient [facility] [id number] 2018-10-28 10:53:11 2018-10-28 10:53:11 Outpatient [facility] [id number] 2018-10-13 08:48:48 2018-10-13 08:48:48 Outpatient [facility] [id number] 2018-09-22 14:24:36 2018-09-22 14:24:36 Outpatient [facility] [id number] 2018-09-22 09:16:38 2018-09-22 09:16:38 Outpatient [facility] [id number] 2018-09-05 15:41:24 2018-09-05 15:41:24 Outpatient [facility] [id number] 2018-09-04 12:12:06 2018-09-04 12:12:06 Outpatient [facility] [id number] 2018-03-11 00:00:00 2018-03-11 00:00:00 Outpatient [facility] [id number] 2018-01-31 00:00:00 2018-01-31 00:00:00 Outpatient [facility] [id number] 2018-01-05 00:00:00 2018-01-05 00:00:00 Outpatient [facility] [id number] 2018-01-04 00:00:00 2018-01-04 00:00:00 Outpatient [facility] [id number] 2018-01-03 00:00:00 2018-01-03 00:00:00 Outpatient [facility] [id number] 2017-12-13 15:20:30 2017-12-13 15:20:30 Outpatient [facility] [id number] 2017-11-21 00:00:00 2017-11-21 00:00:00 Outpatient [facility] [id number] 2017-11-15 14:18:44 2017-11-15 14:18:44 Outpatient [facility] [id number] 2017-10-29 12:53:28 2017-10-29 12:53:28 Outpatient [facility] [id number] 2017-10-02 10:07:21 2017-10-02 10:07:21 Outpatient [facility] [id number] 2017-10-02 09:40:17 2017-10-02 09:40:17 Outpatient [facility] [id number] 2017-09-30 00:00:00 2017-09-30 00:00:00 Outpatient [facility] [id number] 2017-09-27 15:36:09 2017-09-27 15:36:09 Outpatient [facility] [id number] 2017-08-21 06:37:17 2017-08-21 06:37:17 Outpatient [facility] [id number] 2017-08-21 00:00:00 2017-08-21 00:00:00 Outpatient [facility] [id number] 2017-08-14 11:06:29 2017-08-14 11:06:29 Outpatient [facility] [id number] 2017-08-14 00:00:00 2017-08-14 00:00:00 Outpatient [facility] [id number] 2017-06-25 09:13:36 2017-06-25 09:13:36 Outpatient [facility] [id number] 2017-06-25 08:16:42 2017-06-25 08:16:42 Outpatient [facility] [id number] 2017-06-17 14:02:49 2017-06-17 14:02:49 Outpatient [facility] [id number] 2017-04-08 08:53:08 2017-04-08 08:53:08 Outpatient [facility] [id number] 2017-01-30 11:04:57 2017-01-30 11:04:57 Outpatient [facility] [id number] 2017-01-10 14:51:44 2017-01-10 14:51:44 Outpatient [facility] [id number] 2017-01-08 12:52:16 2017-01-08 12:52:16 Outpatient [facility] [id number] 2016-12-19 00:00:00 2016-12-19 00:00:00 Outpatient [facility] [id number] 2016-12-12 12:59:18 2016-12-12 12:59:18 Outpatient [facility] [id number] 2016-12-07 13:18:35 2016-12-07 13:18:35 Outpatient [facility] [id number] 2016-12-05 09:54:52 2016-12-05 09:54:52 Outpatient [facility] [id number] 2016-12-05 00:00:00 2016-12-05 00:00:00 Outpatient [facility] [id number] 2016-12-03 08:51:35 2016-12-03 08:51:35 Outpatient [facility] [id number] 2016-11-14 13:07:47 2016-11-14 13:07:47 Outpatient [facility] [id number] 2016-10-18 14:10:54 2016-10-18 14:10:54 Outpatient [facility] [id number] 2016-10-10 14:19:14 2016-10-10 14:19:14 Outpatient [facility] [id number] 2016-10-10 13:28:32 2016-10-10 13:28:32 Outpatient [facility] [id number] 2016-09-25 08:18:26 2016-09-25 08:18:26 Outpatient [facility] [id number] 2016-09-19 16:10:48 2016-09-19 16:10:48 Outpatient [facility] [id number] 2016-09-19 14:46:24 2016-09-19 14:46:24 Outpatient [facility] [id number] 2016-09-19 10:58:01 2016-09-19 10:58:01 Outpatient [facility] [id number] 2016-09-14 13:45:18 2016-09-14 13:45:18 Outpatient [facility] [id number] Results Test Description Test Time Test Comments Text Results Atomic Results Result Comments KNEE RIGHT THREE VIEWS [address] [address] Patient Name: YUN OSMAN MR #: [id number] : 1955 Age/Sex: 61/M Req #: [id number] [facility] Physician: Ordered by: FABRICE COREY MD Report #: [id number] Location: Room/Bed: Procedure: [id number] DX/KNEE RIGHT THREE VIEWS Exam Date: 02/11/17 Exam Time: 1413 REPORT STATUS: Signed PROCEDURE: KNEE RIGHT THREE VIEWS TECHNIQUE: AP, lateral and oblique views right knee INDICATION: Right knee pain; tightness. COMPARISON: None. FINDINGS: The right knee is intact and in anatomic alignment. Joint space is maintained. Questionable marginal osteophytosis at the inferior aspect of the patella. No definite effusion. Regional soft tissues are intact. Diffuse arteriosclerosis. CONCLUSION: 1. No acute abnormality. 2. Diffuse arteriosclerosis. Dictated by: Asher Will M.D. on 02/11/2017 at 14:40 Electronically approved by: Asher Will M.D. on 02/11/2017 at 14:40 Dictated By: ASHER WILL MD 1440 Transcribed By: CATHY on 02/11/17 1440 COPY TO: FABRICE COREY MD
== END 2018-11-24 13:00 | disposition home or self-care (01) ==
LOC: ER 12:01
DX: M79.662 Pain in left lower leg (principal); E11.622 Type 2 diabetes mellitus with other skin ulcer; L97.829 Non-pressure chronic ulcer of other part of left lower leg with unspecified severity; I10 Essential (primary) hypertension
CPT/HCPCS: 99283